=== PATIENT | male | born 1940 | race Caucasian/White ===

== ENCOUNTER 2018-04-27 10:22 | Inpatient (IN) ==
--- NOTE | 2018-04-27 10:43 | Emergency Department Note ---
Disposition Clinical Impression: Unstable angina Chest pain Qualifiers: Chest pain type: unspecified Qualified Code(s): R07.9 - Chest pain, unspecified Disposition: Admitted As Inpatient Condition: Undetermined Referrals: Kimberly Kingsley MD [Primary Care Provider] - Forms: ED Satisfaction Letter, Work/School Release Time of Disposition: 12:31 General Adult HPI - General Chief complaint: ED General Medical Stated complaint: "abnormal ekg, sent by " Time Seen by Provider: 04/27/18 10:29 Source: patient Mode of arrival: ambulatory Limitations: no limitations Nursing Notes Reviewed: Yes Vital Signs Reviewed: Yes - History of Present Illness HPI Narrative: 77-year-old male with history of hypertension, hyperlipidemia, CAD with history of CABG roughly 15 years ago, arrives to the emergency department being sent from primary care physician office for EKG changes and angina. The patient states that he has been experiencing episodes of chest pain and associated dyspnea that radiates down his left upper extremity over the past few weeks. The patient states that some episodes occur while he is laying in bed while other episodes occur while he is ambulating. The patient states that he walked from the [place] earlier today up to the emergency department and experiencing chest pain and discomfort at that time but he states that 2 days ago he experienced chest pain while he was laying in bed. The patient denies any hemoptysis, unilateral leg swelling, history DVT or PE, recent surgeries or immobilizations. Patient has no radiation of this pain other than to his left upper extremity. He states that he has associated dyspnea without any nausea or diaphoresis when pain occurs. Last episode occurred roughly 1 hour ago. He is otherwise resting comfortably in the room this time. Pain Scale: 2 - Related Data Home Medications Medication Instructions Recorded Confirmed Amlodipine Besylate 10 mg PO DAILY 04/27/18 04/27/18 Aspirin [Lo-Dose Aspirin EC] 81 mg PO DAILY 04/27/18 04/27/18 Atorvastatin [Lipitor] 10 mg PO QWEEK 04/27/18 04/27/18 Cholecalciferol (Vitamin D3) 2,000 unit PO DAILY 04/27/18 04/27/18 [Vitamin D] Cyanocobalamin (B-12) [Vitamin B12] 1,000 mcg PO DAILY 04/27/18 04/27/18 Losartan/Hydrochlorothiazide 1 tab PO DAILY 04/27/18 04/27/18 [Losartan-Hctz 100-25 mg Tab] Magnesium Oxide [Magnesium] 250 mg PO DAILY 04/27/18 04/27/18 Metoprolol Succinate [Toprol Xl] 50 mg PO DAILY 04/27/18 04/27/18 [place]-3/Dha/Epa/Fish Oil [Fish Oil 1 cap PO BID 04/27/18 04/27/18 1,000 mg Softgel] Potassium Chloride [Klor-Con 10] 10 meq PO BID 04/27/18 04/27/18 Pramipexole Di-HCl [Pramipexole 0.25 mg PO HS 04/27/18 04/27/18 Dihydrochloride] Ubidecarenone [Co Q-10] 200 mg PO DAILY 04/27/18 04/27/18 Allergies Allergy/AdvReac Type Severity Reaction Status Date / Time Amoxicillin AdvReac Diarrhea Verified 04/27/18 11:15 fenofibrate AdvReac Muscle Pain Verified 04/27/18 11:15 hydrocodone AdvReac See Verified 04/27/18 11:15 Comments Oxycodone AdvReac See Verified 04/27/18 11:15 Comments pravastatin AdvReac Muscle Pain Verified 04/27/18 11:15 Znmlsel-Ryo-Bvt Reductase AdvReac See Verified 04/27/18 11:15 Inhibitor Comments [HMG-Coa Reductase Inhibitors] All systems ED: reviewed and negative except as stated. Constitutional: Denies: fever, chills, weakness ENT ED: Denies: congestion Cardiovascular: Reports: chest pain, dyspnea on exertion. Denies: orthopnea, edema, syncope Respiratory: Reports: dyspnea. Denies: cough, wheezes Gastrointestinal: Denies: abdominal pain, nausea, vomiting, diarrhea, constipation Genitourinary: Denies: urgency, dysuria Musculoskeletal: Denies: back pain, arthralgia, myalgia Integumentary: Denies: rash Neurological: Denies: headache Past Medical History - Past Medical History Attestation: Yes The following information was validated with the patient. Source: patient, old records reviewed Medical history: Reports: coronary artery disease, hyperlipidemia, hypertension , kidney stones Surgical history: Reports: coronary bypass (CABG) Psychiatric history: Reports: no psych history - Social History Smoking Status: Never smoker Alcohol use: Reports: none Drug use: Reports: none Physical Exam - General Limitations: no limitations General appearance: alert, in no apparent distress - Head Head exam: atraumatic, normocephalic, normal inspection - Eye Eye exam: Present: normal appearance, PERRL, EOMI - ENT ENT exam: normal exam, normal oropharynx, mucous membranes moist - Neck Neck exam: Present: normal inspection, full ROM, trachea midline - Chest Chest inspection: Present: normal inspection, symmetric chest wall rise - Respiratory Respiratory exam: Present: normal lung sounds bilaterally - Cardiovascular Cardiovascular exam: Present: regular rate, normal rhythm, normal heart sounds - Abdominal Exam Abdominal exam: Present: soft, Non-Tender. Absent: tenderness, distention, guarding, rebound, rigidity - Extremities Exam Extremities exam: Present: normal inspection, full ROM. Absent: tenderness, pedal edema - Neurological Exam Neurological exam: Present: alert, oriented X3 - Skin Skin exam: Present: warm, dry, intact, normal color Course Vital Signs Temperature 97.6 F 04/27/18 10:23 Pulse Rate 62 04/27/18 10:23 Respiratory Rate 18 04/27/18 10:23 Blood Pressure 179/80 04/27/18 10:23 O2 Sat by Pulse Oximetry 92 04/27/18 10:23 Temperature 97.6 F 04/27/18 10:42 Pulse Rate 54 04/27/18 10:42 Respiratory Rate 18 04/27/18 10:42 Blood Pressure 160/75 04/27/18 10:42 O2 Sat by Pulse Oximetry 95 04/27/18 10:48 Oxygen Delivery Oxygen Delivery Room Air Medical Decision Making - [facility] Narrative Medical decision making narrative: Patient's workup in the emergency department demonstrates no acute process. The patient's troponin is not elevated at this time. The patient's chest x-ray demonstrate no acute findings. Given the patient's unstable anginal type pattern combined with his history of CABG and known CAD as well as the patient' s intermittent episodes of chest pain, we will admit the patient to the hospital at this time. The patient will likely require further workup and care. His primary care physician sent him for evaluation and likely admission with cardiology consultation. The patient is otherwise resting comfortably with no chest pain at this time. The patient was administered 325 mg aspirin. The case was discussed with the patient as well as disposition and he agreed to plan of care. No further questions or concerns noted at this time. Accepted by Dr. Guevara. - Lab Data Lab results reviewed: Yes I reviewed the patient's lab results. Result diagrams: 04/27/18 10:36 04/27/18 10:36 Lab Results 04/27/18 04/27/18 04/27/18 Range/Units 10:36 10:36 10:36 WBC 6.8 (4.3-11.1) K/mcL RBC 5.99 H (4.19-5.50) M/mcL Hgb 17.1 H (12.9-16.9) g/dL Hct 52.0 H (37.5-50.1) % MCV 86.8 (83.0-100.0) fL MCH 28.5 (28.0-33.3) pg MCHC 32.9 (31.6-35.5) g/dL RDW 14.2 (11.5-14.5) % Plt Count 233 (140-400) K/mcL MPV 9.9 (9.4-12.4) fL Immature Gran % 0.3 (0-4) % Seg Neutrophils % 54.9 % Lymphocytes % 30.5 % Monocytes % 10.2 % Eosinophils % 3.4 % Basophils % 0.7 % Neutrophils # 3.7 (1.6-8.9) K/mcL Lymphocytes # 2.1 (0.6-4.6) K/mcL Monocytes # 0.7 (0.0-1.3) K/mcL Eosinophils # 0.2 (0.0-0.6) K/mcL Basophils # 0.1 (0.0-0.2) K/mcL Immature Plt Fraction 4.2 (1.1-6.1) % PT 10.8 (9.4-12.1) Seconds INR 1.0 APTT 31.7 (26.0-36.0) Seconds Sodium 138 (136-145) mEq/L Potassium 4.2 (3.5-5.1) mEq/L Chloride 101 (98-107) mEq/L Carbon Dioxide 31 H (23-29) mEq/L BUN 22 (8-23) mg/dL Creatinine 1.04 (0.70-1.30) mg/dL Est GFR ( Amer) > 60 (> 60) Est GFR (Non-Af Amer) > 60 (> 60) BUN/Creatinine Ratio 21 (6-26) Glucose 116 H (70-105) mg/dL Calculated Osmolality 290 (280-300) Calcium 9.5 (8.6-10.3) mg/dL Troponin I < 0.03 (< 0.04) ng/mL - Radiology Data Radiology results reviewed: Yes I reviewed the patient's radiology results. Chest X-Ray 04/27/18 10:28 IMPRESSION: No acute process. D/ / 04/27/2018 11:08:52 Mark Kenyon MD / issa Interpreting Provider: Mark Kenyon MD - EKG Data EKG #1 EKG attestation: Yes I reviewed and interpreted this EKG. EKG results narrative: Heart rate 57 bpm. Sinus bradycardia. Mild ST elevation noted in leads 3, aVF. Flipped T waves in aVL and mild ST depression in lead 1. This is identical to EKG performed earlier today and primary care physician's office and similar to EKG from 06/06/2014. He was possibly mild increase in elevation in lead 3 and aVF but otherwise is similar in appearance. No other acute changes noted.
[2018-04-27 10:53] LABS: Basophils # 0.1 K/mcL (0.0-0.2); Basophils % 0.7 %; Eosinophils # 0.2 K/mcL (0.0-0.6); Eosinophils % 3.4 %; Hemoglobin 17.1 g/dL (12.9-16.9); Immature Granulocytes % 0.3 % (0-4); Lymphocytes # 2.1 K/mcL (0.6-4.6); Lymphocytes % 30.5 %; Mean Corpuscular HGB Conc 32.9 g/dL (31.6-35.5); Mean Corpuscular Hemoglobin 28.5 pg (28.0-33.3); Mean Corpuscular Volume 86.8 fL (83.0-100.0); Mean Platelet Volume 9.9 fL (9.4-12.4); Monocytes # 0.7 K/mcL (0.0-1.3); Monocytes % 10.2 %; Neutrophils # 3.7 K/mcL (1.6-8.9); Platelet Count 233 K/mcL (140-400); Red Blood Count 5.99 M/mcL (4.19-5.50); Red Cell Distribution Width 14.2 % (11.5-14.5); Segmented Neutrophils % 54.9 %
[2018-04-27 10:56] LABS: Immature Platelets 4.2 % (1.1-6.1)
[2018-04-27 11:05] LABS: Prothrombin Time 10.8 Seconds (9.4-12.1)
[2018-04-27 11:07] LABS: BUN/Creatinine Ratio 21 (6-26); Blood Urea Nitrogen 22 mg/dL (8-23); Calcium 9.5 mg/dL (8.6-10.3); Carbon Dioxide 31 mEq/L (23-29); Chloride 101 mEq/L (98-107); Glucose 116 mg/dL (70-105); Osmolality,Calculated 290 (280-300); Potassium 4.2 mEq/L (3.5-5.1); Sodium 138 mEq/L (136-145); eGFR For African Americans > 60 (> 60); eGFR For Non-African Americans > 60 (> 60)
[2018-04-27 11:08] LABS: Activated Partial Thrombo Time 31.7 Seconds (26.0-36.0); Troponin I < 0.03 ng/mL (< 0.04)
[2018-04-27] MEDS ORDERED: Aspirin 325 MG TABLET PO ONE (11:12)
[2018-04-27] MEDS ORDERED: Naloxone 0.4 MG/ML INJ IVP PRN (12:51)
[2018-04-27] MEDS ORDERED: Acetaminophen 325 MG TABLET PO PRN (12:51)
[2018-04-27] MEDS ORDERED: Ondansetron 4 MG/2 ML VIAL IVP PRN (12:51)
[2018-04-27] MEDS ORDERED: Nitroglycerin 0.4 MG TAB.SUBL SL PRN (12:55)
--- NOTE | 2018-04-27 13:35 | Emergency Department Note ---
Disposition Clinical Impression: Unstable angina Chest pain Qualifiers: Chest pain type: unspecified Qualified Code(s): R07.9 - Chest pain, unspecified Disposition: Admitted As Inpatient Condition: Undetermined General Adult HPI - General Chief complaint: ED Recheck/Abnormal Lab/Rx Stated complaint: "abnormal ekg, sent by " Time Seen by Provider: 04/27/18 10:29 Source: patient Mode of arrival: ambulatory Limitations: no limitations - History of Present Illness Pain Scale: 2 - Related Data Home Medications Medication Instructions Recorded Confirmed Amlodipine Besylate 10 mg PO DAILY 04/27/18 04/27/18 Aspirin [Lo-Dose Aspirin EC] 81 mg PO DAILY 04/27/18 04/27/18 Atorvastatin [Lipitor] 10 mg PO QWEEK 04/27/18 04/27/18 Cholecalciferol (Vitamin D3) 2,000 unit PO DAILY 04/27/18 04/27/18 [Vitamin D] Cyanocobalamin (B-12) [Vitamin B12] 1,000 mcg PO DAILY 04/27/18 04/27/18 Losartan/Hydrochlorothiazide 1 tab PO DAILY 04/27/18 04/27/18 [Losartan-Hctz 100-25 mg Tab] Magnesium Oxide [Magnesium] 250 mg PO DAILY 04/27/18 04/27/18 Metoprolol Succinate [Toprol Xl] 50 mg PO DAILY 04/27/18 04/27/18 [place]-3/Dha/Epa/Fish Oil [Fish Oil 1 cap PO BID 04/27/18 04/27/18 1,000 mg Softgel] Potassium Chloride [Klor-Con 10] 10 meq PO BID 04/27/18 04/27/18 Pramipexole Di-HCl [Pramipexole 0.25 mg PO HS 04/27/18 04/27/18 Dihydrochloride] Ubidecarenone [Co Q-10] 200 mg PO DAILY 04/27/18 04/27/18 Allergies Allergy/AdvReac Type Severity Reaction Status Date / Time Amoxicillin AdvReac Diarrhea Verified 04/27/18 11:15 fenofibrate AdvReac Muscle Pain Verified 04/27/18 11:15 hydrocodone AdvReac See Verified 04/27/18 11:15 Comments Oxycodone AdvReac See Verified 04/27/18 11:15 Comments pravastatin AdvReac Muscle Pain Verified 04/27/18 11:15 Qdbatvq-Rda-Dek Reductase AdvReac See Verified 04/27/18 11:15 Inhibitor Comments [HMG-Coa Reductase Inhibitors] Constitutional: Denies: fever, chills, weakness ENT ED: Denies: congestion Cardiovascular: Reports: chest pain, dyspnea on exertion. Denies: orthopnea, edema, syncope Respiratory: Reports: dyspnea. Denies: cough, wheezes Gastrointestinal: Denies: abdominal pain, nausea, vomiting, diarrhea, constipation Genitourinary: Denies: urgency, dysuria Musculoskeletal: Denies: back pain, arthralgia, myalgia Integumentary: Denies: rash Neurological: Denies: headache Past Medical History - Past Medical History Medical history: Reports: coronary artery disease, hyperlipidemia, hypertension , kidney stones Surgical history: Reports: coronary bypass (CABG) Psychiatric history: Reports: no psych history - Social History Smoking Status: Never smoker Smokeless Tobacco Status: No Alcohol use: Reports: none Drug use: Reports: none Physical Exam - General Limitations: no limitations General appearance: alert, in no apparent distress Course Vital Signs Temperature 97.6 F 04/27/18 10:23 Pulse Rate 62 04/27/18 10:23 Respiratory Rate 18 04/27/18 10:23 Blood Pressure 179/80 04/27/18 10:23 O2 Sat by Pulse Oximetry 92 04/27/18 10:23 Temperature 97.5 F L 04/27/18 13:27 Pulse Rate 49 04/27/18 13:27 Respiratory Rate 17 04/27/18 13:27 Blood Pressure 147/76 04/27/18 13:27 O2 Sat by Pulse Oximetry 94 04/27/18 13:27 Oxygen Delivery Oxygen Delivery Room Air Medical Decision Making - Lab Data Result diagrams: 04/27/18 10:36 04/27/18 10:36 Lab Results 04/27/18 04/27/18 04/27/18 Range/Units 10:36 10:36 10:36 WBC 6.8 (4.3-11.1) K/mcL RBC 5.99 H (4.19-5.50) M/mcL Hgb 17.1 H (12.9-16.9) g/dL Hct 52.0 H (37.5-50.1) % MCV 86.8 (83.0-100.0) fL MCH 28.5 (28.0-33.3) pg MCHC 32.9 (31.6-35.5) g/dL RDW 14.2 (11.5-14.5) % Plt Count 233 (140-400) K/mcL MPV 9.9 (9.4-12.4) fL Immature Gran % 0.3 (0-4) % Seg Neutrophils % 54.9 % Lymphocytes % 30.5 % Monocytes % 10.2 % Eosinophils % 3.4 % Basophils % 0.7 % Neutrophils # 3.7 (1.6-8.9) K/mcL Lymphocytes # 2.1 (0.6-4.6) K/mcL Monocytes # 0.7 (0.0-1.3) K/mcL Eosinophils # 0.2 (0.0-0.6) K/mcL Basophils # 0.1 (0.0-0.2) K/mcL Immature Plt Fraction 4.2 (1.1-6.1) % PT 10.8 (9.4-12.1) Seconds INR 1.0 APTT 31.7 (26.0-36.0) Seconds Sodium 138 (136-145) mEq/L Potassium 4.2 (3.5-5.1) mEq/L Chloride 101 (98-107) mEq/L Carbon Dioxide 31 H (23-29) mEq/L BUN 22 (8-23) mg/dL Creatinine 1.04 (0.70-1.30) mg/dL Est GFR ( Amer) > 60 (> 60) Est GFR (Non-Af Amer) > 60 (> 60) BUN/Creatinine Ratio 21 (6-26) Glucose 116 H (70-105) mg/dL Calculated Osmolality 290 (280-300) Calcium 9.5 (8.6-10.3) mg/dL Troponin I < 0.03 (< 0.04) ng/mL Attestation Statement - Attestation Attestation: I examined this patient and my medical decision-making was reviewed with the INDUSTRIAL RELATIONS REPRESENTATIVE/PA/Advanced Practice Nurse/Resident Physician. I agree with the documented findings, disposition and treatment plan as described except to the extent set forth below. Patient does complain of exertional chest pain with symptoms concerning for acute coronary syndrome. Initial labs are negative. The patient does have a history of CABG. Chest x-ray negative. The troponin is negative. The patient will be admitted for further inpatient evaluation. He is laying comfortably on the cart, conversational, skin is pink and dry. No distress at this time [id number]
--- NOTE | 2018-04-27 16:32 | Internal Med History&Physical ---
Date of Encounter: 04/27/18 Time of Encounter: 16:28 Internal Medicine - H&P: HPI Chief complaint: Chest pain Admitted From: Emergency Dept Plans for Post Hospital Care: Home History of present illness: Mr. Berry is a 77 year old male with known hypertension, hyperlipidemia, and CAD with s/p PCI, history of CABG roughly 15 years ago, arrives to the emergency department being sent from primary care physician office for EKG changes and angina chest pain. He did mention from [place] one week he has been having intermittent CP, located left chest and sub sternal region, radiating to his Left arm. His pain 6/10 in severity. He did g to his PCP who is worried about pt 's angina equivalent cp and non specific ekg changes. So PCP sent the pt to our ER for further care. Also pt tried to reach out this Card with this CP , however they do not have any openings till November. Pt is alert, awake and O x 3. Denied any active CP now. Past Med Surg Social Fam HX - Past Medical History Medical history: coronary artery disease, hyperlipidemia, hypertension, kidney stones Psychiatric history: no psych history - Past Surgical History Surgical History: coronary bypass (CABG) Additional surgical history: Lithotripsy - Social History Smoking Status: Never smoker Smokeless Tobacco Status: No Alcohol use: none Drug use: none - Additional Family History Additional family history: Reviewed FH, non contribuitory to current problems. Internal Medicine - H&P: Meds Amlodipine Besylate 10 mg PO DAILY 04/27/18 [History] Aspirin [Lo-Dose Aspirin EC] 81 mg PO DAILY 04/27/18 [History] Atorvastatin [Lipitor] 10 mg PO QWEEK 04/27/18 [History] Cholecalciferol (Vitamin D3) [Vitamin D] 2,000 unit PO DAILY 04/27/18 [History] Cyanocobalamin (B-12) [Vitamin B12] 1,000 mcg PO DAILY 04/27/18 [History] Losartan/Hydrochlorothiazide [Losartan-Hctz 100-25 mg Tab] 1 tab PO DAILY [History] Magnesium Oxide [Magnesium] 250 mg PO DAILY 04/27/18 [History] Metoprolol Succinate [Toprol Xl] 50 mg PO DAILY 04/27/18 [History] [place]-3/Dha/Epa/Fish Oil [Fish Oil 1,000 mg Softgel] 1 cap PO BID 04/27/18 [ History] Potassium Chloride [Klor-Con 10] 10 meq PO BID 04/27/18 [History] Pramipexole Di-HCl [Pramipexole Dihydrochloride] 0.25 mg PO HS 04/27/18 [History ] Ubidecarenone [Co Q-10] 200 mg PO DAILY 04/27/18 [History] 3 Allergy/AdvReac Type Severity Reaction Status Date / Time Amoxicillin AdvReac Diarrhea Verified 04/27/18 11:15 fenofibrate AdvReac Muscle Pain Verified 04/27/18 11:15 hydrocodone AdvReac See Verified 04/27/18 11:15 Comments Oxycodone AdvReac See Verified 04/27/18 11:15 Comments pravastatin AdvReac Muscle Pain Verified 04/27/18 11:15 Vtmezos-Iqc-Lvf Reductase AdvReac See Verified 04/27/18 11:15 Inhibitor Comments [HMG-Coa Reductase Inhibitors] All Systems PM: A 10-system review of systems was performed and is negative for pertinent findings except as documented above in the HPI. Review of systems: Reviewed all the systems everything is benign except the signs an symptoms I mentioned in HPI. - Constitutional Vitals: Temp Pulse Resp BP Pulse Ox 97.6 F 48 16 134/64 91 04/27/18 15:14 04/27/18 15:14 04/27/18 15:14 04/27/18 15:14 04/27/18 15:14 General appearance: Present: A&O X 3, no acute distress, answers questions appropriately - Head Head exam: Present: atraumatic, normal inspection - Respiratory Respiratory exam: Present: decreased breath sounds. Absent: accessory muscle use, rales, rhonchi, wheezes - Cardiovascular Cardiovascular exam: Present: bradycardia, +S1, +S2. Absent: systolic murmur - GI/Abdominal GI/Abdominal exam: Present: normal bowel sounds, soft. Absent: rigid, tenderness - Extremities Exam Extremities exam: Absent: calf tenderness, pedal edema, tenderness - Back Exam Back exam: Absent: CVA tenderness (L), CVA tenderness (R) - Neurological Exam Neurological exam: Present: alert, oriented X3 - Psychiatric Psychiatric exam: Present: normal affect, normal mood - Skin Skin exam: Absent: rash Internal Med - H&P Results - Labs CBC & Chem 7: 04/27/18 10:36 04/27/18 10:36 - Assessment and plan (1) Chest pain Current Visit: Yes Status: Acute Assessment and plan: Place the pt into tele for observation on cage loader so far negative trop check serial troponin Reviewed EKG showed Sinus claire HR @ 57, Non specific ST T changes noticed on lateral leads Cont ASA 81mg and ARBS Nitor PRN for CP Since pt is high risk for ACS will do pharmacological stress test in AM Qualifiers: Chest pain type: unspecified Qualified Code(s): R07.9 - Chest pain, unspecified (2) CAD (coronary artery disease) Current Visit: Yes Status: Acute Assessment and plan: resumed home meds except BB due to bradycardia Qualifiers: Coronary Disease-Associated Artery/Lesion type: bypass graft [place] vs. transplanted heart: [place] heart Associated angina: with stable angina Qualified Code(s): I25.708 - Atherosclerosis of coronary artery bypass graft(s) , unspecified, with other forms of angina pectoris (3) HTN (hypertension) Current Visit: Yes Status: Acute Assessment and plan: stable with home medications resumed home medications Qualifiers: Hypertension type: essential hypertension Qualified Code(s): I10 - Essential (primary) hypertension (4) HLD (hyperlipidemia) Current Visit: Yes Status: Acute Assessment and plan: on statin check FLP in AM Qualifiers: Hyperlipidemia type: unspecified Qualified Code(s): E78.5 - Hyperlipidemia , unspecified (5) Bradycardia Current Visit: Yes Status: Acute Assessment and plan: Will hold on BB for now asymptomatic at this point - Time Spent With Patient Total time spent is greater than 50% in coordination of care (as documented) at patient's floor/unit and/or counseling patient:
[2018-04-27] MEDS: (Omega-3/Dha/Epa/Fish Oil [Fish Oil 1,000 Mg Softgel]) PO SCH (20:56)
[2018-04-28 06:43] LABS: Chol/HDL Ratio 3.6 (0-4.9)
[2018-04-28] MEDS ORDERED: Regadenoson 0.4 MG/5 ML SYRINGE IVP ONE (08:04)
[2018-04-28] MEDS ORDERED: Metoprolol XL (24 HR) Succ 50 MG TAB.ER.24H PO SCH (09:00)
[2018-04-28] MEDS: (Ubidecarenone [Co Q-10] 200 MG) PO SCH (14:32)
[2018-04-28] MEDS: (Omega-3/Dha/Epa/Fish Oil [Fish Oil 1,000 Mg Softgel]) PO SCH ×2 (14:32→20:17)
[2018-04-28] MEDS: Aspirin Enteric Coated 81 MG Tablet PO SCH (14:38)
[2018-04-28] MEDS: amLODIPine 5 MG TABLET PO SCH (14:38)
[2018-04-28] MEDS: Losartan/HCTZ 50-12.5 TABLET PO SCH (14:38)
[2018-04-28] MEDS: Cholecalciferol (D-3) 1,000 UNIT TABLET PO SCH (14:38)
[2018-04-28] MEDS: Cyanocobalamin (B-12) 1,000 MCG TABLET PO SCH (14:39)
[2018-04-28] MEDS: Magnesium Oxide 400 MG TABLET PO SCH (14:39)
--- NOTE | 2018-04-28 16:30 | Internal Med Progress Note ---
<Warren Altman - Last Filed: 04/28/18 16:27> Date of Encounter: 04/28/18 Time of Encounter: 16:27 - Assessment and plan (1) Chest pain Current Visit: Yes Status: Acute Assessment and plan: Chest pain-free at this time. Plan as above. Continue aspirin, weekly statin due to allergy. Hold beta pj due to bradycardia Qualifiers: Chest pain type: unspecified Qualified Code(s): R07.9 - Chest pain, unspecified (2) CAD (coronary artery disease) Current Visit: Yes Status: Acute Assessment and plan: resumed home meds except beta pj due to bradycardia. Await cardiology recommendations Qualifiers: Coronary Disease-Associated Artery/Lesion type: bypass graft [place] vs. transplanted heart: [place] heart Associated angina: with stable angina Qualified Code(s): I25.708 - Atherosclerosis of coronary artery bypass graft(s) , unspecified, with other forms of angina pectoris (3) HTN (hypertension) Current Visit: Yes Status: Acute Assessment and plan: Mildly elevated Continue home medications, continue to monitor Qualifiers: Hypertension type: essential hypertension Qualified Code(s): I10 - Essential (primary) hypertension (4) HLD (hyperlipidemia) Current Visit: Yes Status: Acute Assessment and plan: Continue statin, patient takes weekly due to is listed statin allergy Qualifiers: Hyperlipidemia type: unspecified Qualified Code(s): E78.5 - Hyperlipidemia , unspecified (5) Bradycardia Current Visit: Yes Status: Acute Assessment and plan: Will hold on BB for now asymptomatic at this point (6) Abnormal stress test Current Visit: Yes Status: Acute Assessment and plan: Stress test showed partially fixed basal lateral wall perfusion defect with worsening during stress possibly representing mild ischemia, no perfusion evidence of infarct. Given the patient's typical chest pain and significant cardiac history we will consult cardiology and await their official recommendations. Patient is chest pain-free at this time. - Time Spent With Patient Total time spent is greater than 50% in coordination of care (as documented) at patient's floor/unit and/or counseling patient: - Subjective Interval history: Patient seen and examined at bedside. Patient states he feels pretty good today. He denies chest pain, shortness of breath. - Constitutional Vitals: Temp Pulse Resp BP Pulse Ox 98.2 F 62 14 168/77 91 04/28/18 15:24 04/28/18 15:24 04/28/18 15:24 04/28/18 15:24 04/28/18 15:24 General appearance: Present: A&O X 3, no acute distress, answers questions appropriately - Respiratory Respiratory exam: Present: CTAB. Absent: rales, rhonchi, wheezes - Cardiovascular Cardiovascular exam: Present: RRR. Absent: gallop, rubs, systolic murmur - GI/Abdominal GI/Abdominal exam: Present: normal bowel sounds, soft. Absent: distended, tenderness - Extremities Exam Extremities exam: Present: warm. Absent: pedal edema, tenderness - Neurological Exam Neurological exam: Present: alert, CN II-XII intact, oriented X3, no focal deficits Internal Medicine: Result - Labs CBC & Chem 7: 04/27/18 10:36 04/27/18 10:36 Labs: Cardiac Enzymes 04/27/18 04/27/18 Range/Units 16:22 22:53 Troponin I < 0.03 < 0.03 (< 0.04) ng/mL - ABG Interpretation ABG results: PT/INR, D-dimer PT 10.8 Seconds (9.4-12.1) 04/27/18 10:36 Consult Discharge Plan - Plan Referrals: Kimberly Kingsley MD [Primary Care Provider] - <Drea Martinez - Last Filed: 04/28/18 17:19> Date of Encounter: 04/28/18 - Assessment and plan (1) Chest pain Current Visit: Yes Status: Acute Qualifiers: Chest pain type: unspecified Qualified Code(s): R07.9 - Chest pain, unspecified (2) CAD (coronary artery disease) Current Visit: Yes Status: Acute Qualifiers: Coronary Disease-Associated Artery/Lesion type: bypass graft [place] vs. transplanted heart: [place] heart Associated angina: with stable angina Qualified Code(s): I25.708 - Atherosclerosis of coronary artery bypass graft(s) , unspecified, with other forms of angina pectoris (3) HTN (hypertension) Current Visit: Yes Status: Acute Qualifiers: Hypertension type: essential hypertension Qualified Code(s): I10 - Essential (primary) hypertension (4) HLD (hyperlipidemia) Current Visit: Yes Status: Acute Qualifiers: Hyperlipidemia type: unspecified Qualified Code(s): E78.5 - Hyperlipidemia , unspecified (5) Bradycardia Current Visit: Yes Status: Acute (6) Abnormal stress test Current Visit: Yes Status: Acute - Time Spent With Patient Total time spent is greater than 50% in coordination of care (as documented) at patient's floor/unit and/or counseling patient: - Constitutional Vitals: Temp Pulse Resp BP Pulse Ox 98.2 F 62 14 168/77 91 04/28/18 15:24 04/28/18 15:24 04/28/18 15:24 04/28/18 15:24 04/28/18 15:24 Internal Medicine: Result - Labs CBC & Chem 7: 04/27/18 10:36 04/27/18 10:36 Labs: Cardiac Enzymes 04/27/18 04/27/18 Range/Units 16:22 22:53 Troponin I < 0.03 < 0.03 (< 0.04) ng/mL - ABG Interpretation ABG results: PT/INR, D-dimer PT 10.8 Seconds (9.4-12.1) 04/27/18 10:36 - Attending Attestation I examined this patient and my medical decision-making was reviewed with the Resident Physician Dr. Altman. I agree with the documented findings, disposition and treatment plan as described except to the extent set forth below. Mr. Berry is a 77 year old male with known hypertension, hyperlipidemia, and CAD with s/p PCI, history of CABG roughly 15 years ago, arrives to the emergency department being sent from primary care physician office for EKG changes and angina chest pain. He did mention from last one week he has been having intermittent CP, located left chest and sub sternal region, radiating to his Left arm. He just came back from stress test. Denied any CP since last night. Gen: A,A,O x 3 Chest : Diminished BS Heart : S1S2+ a/p 1. Acute stable angina 2. Abnormal stress test cont on tele negative troponin Card consulted held BB [place] bradycardia.
--- NOTE | 2018-04-28 20:36 | Cardiology Consult Note ---
Date of Encounter: 04/28/18 Time of Encounter: 20:33 Assessment and Plan (1) Unstable angina Current Visit: Yes Status: Acute Typical slightly progressive angina with exertion now occurs with rest. [facility] d/w patient including R/B/A and he agrees to proceed. Heparin IV will be started, and resume ASA and plavix Discussion w patient/family: The assessment and plan as outlined above was discussed with the patient and/or family members who expressed understanding and agreement. All questions were answered. Thank you for involving us in the care of your patient. Please call with any questions. History of Present Illness Consult date: 04/28/18 Consult reason: Chest pain Chief complaint: Chest pain with activity History of present illness: Mr. Berry is a 77 year old male with known hypertension, hyperlipidemia, and CAD with s/p PCI/CABG complains of exertional angina over last few weeks. This has been typical with RSCP relieved with rest. NST with fixed defect and mild ischemia with stress over basal lateral wall. Pain radiates to the back similiar when he had his stents few weeks prior to CABG. Past Med Surg Social Fam HX - Past Medical History Medical history: coronary artery disease, hyperlipidemia, hypertension, kidney stones Psychiatric history: no psych history - Past Surgical History Surgical History: coronary bypass (CABG) Additional surgical history: Lithotripsy - Social History Smoking Status: Never smoker Smokeless Tobacco Status: No Alcohol use: none Drug use: none Medications and Allergies Amlodipine Besylate 10 mg PO DAILY 04/27/18 [History] Aspirin [Lo-Dose Aspirin EC] 81 mg PO DAILY 04/27/18 [History] Atorvastatin [Lipitor] 10 mg PO QWEEK 04/27/18 [History] Cholecalciferol (Vitamin D3) [Vitamin D] 2,000 unit PO DAILY 04/27/18 [History] Cyanocobalamin (B-12) [Vitamin B12] 1,000 mcg PO DAILY 04/27/18 [History] Losartan/Hydrochlorothiazide [Losartan-Hctz 100-25 mg Tab] 1 tab PO DAILY [History] Magnesium Oxide [Magnesium] 250 mg PO DAILY 04/27/18 [History] Metoprolol Succinate [Toprol Xl] 50 mg PO DAILY 04/27/18 [History] [place]-3/Dha/Epa/Fish Oil [Fish Oil 1,000 mg Softgel] 1 cap PO BID 04/27/18 [ History] Potassium Chloride [Klor-Con 10] 10 meq PO BID 04/27/18 [History] Pramipexole Di-HCl [Pramipexole Dihydrochloride] 0.25 mg PO HS 04/27/18 [History ] Ubidecarenone [Co Q-10] 200 mg PO DAILY 04/27/18 [History] 3 Allergy/AdvReac Type Severity Reaction Status Date / Time Amoxicillin AdvReac Diarrhea Verified 04/27/18 11:15 fenofibrate AdvReac Muscle Pain Verified 04/27/18 11:15 hydrocodone AdvReac See Verified 04/27/18 11:15 Comments Oxycodone AdvReac See Verified 04/27/18 11:15 Comments pravastatin AdvReac Muscle Pain Verified 04/27/18 11:15 [id number] Reductase AdvReac See Verified 04/27/18 11:15 Inhibitor Comments [HMG-Coa Reductase Inhibitors] All Systems Review: The remainder of the systems were reviewed and are negative Physical Examination Vital Signs, Last 4 Hours Temp Pulse Resp BP Pulse Ox 04/28/18 20:01 98.4 F 50 16 101/49 97 04/28/18 19:29 98.2 F 59 16 136/68 92 General: Conversant, No Apparent Distress HEENT: Atraumatic, Normocephaly, Mucus Membranes Moist Neck: No JVD, Normal carotid pulses Cardiac: Reg Rate and Rhythm, Normal S1 and S2, No Murmur Lungs: Normal Breath Sounds, No Wheeze, Rales, Rhonchi Neuro: Alert and responsive, No focal deficits noted Abdomen: Soft, Non-Tender Skin: No rashes noted on visualized skin Musculoskeletal: No Chest Wall Tenderness Extremities: No Clubbing, No Cyanosis, No Edema, Normal Pulses Results 04/27/18 10:36 04/27/18 10:36 Lab Results 04/27/18 22:53 Troponin I < 0.03 Consult Discharge Plan - Plan Referrals: Kimberly Kingsley MD [Primary Care Provider] -
[2018-04-29] MEDS ORDERED: *HR* Heparin 5,000 UNIT/ML VIAL IVP PRN ×2 (07:18)
[2018-04-29] MEDS ORDERED: *HR* Heparin 5,000 UNIT/ML VIAL IVP ONE (07:18)
[2018-04-29] MEDS ORDERED: Heparin 25,000 UNIT/500 ML D5W 25,000 UNIT/500 ML BAG IVC SCH (07:30)
--- NOTE | 2018-04-29 07:32 | Internal Med Progress Note ---
<LisetteWarren brown - Last Filed: 04/29/18 07:30> Date of Encounter: 04/29/18 Time of Encounter: 07:30 - Assessment and plan (1) Unstable angina Current Visit: Yes Status: Acute Assessment and plan: Stress test showed partially fixed basal lateral wall perfusion defect with worsening during stress possibly representing mild ischemia, no perfusion evidence of infarct. Given the patient's typical chest pain and significant cardiac history cardiology has recommended LHC. Heparin drip initiated. Had chest pain last night, EKG reviewed, no changes and troponin negative. Continue ASA, plavix, weekly statin given allergy. Beta pj held at this time due to bradycardia. (2) CAD (coronary artery disease) Current Visit: Yes Status: Acute Assessment and plan: with hx of PCI and CABG, plan as above Qualifiers: Coronary Disease-Associated Artery/Lesion type: bypass graft [place] vs. transplanted heart: [place] heart Associated angina: with stable angina Qualified Code(s): I25.708 - Atherosclerosis of coronary artery bypass graft(s) , unspecified, with other forms of angina pectoris (3) HTN (hypertension) Current Visit: Yes Status: Acute Assessment and plan: Mildly elevated but having some fluctuations Continue home medications, continue to monitor Qualifiers: Hypertension type: essential hypertension Qualified Code(s): I10 - Essential (primary) hypertension (4) HLD (hyperlipidemia) Current Visit: Yes Status: Acute Assessment and plan: Continue statin, patient takes weekly due to is listed statin allergy Qualifiers: Hyperlipidemia type: unspecified Qualified Code(s): E78.5 - Hyperlipidemia , unspecified (5) Bradycardia Current Visit: Yes Status: Acute Assessment and plan: Will hold on BB for now asymptomatic at this point - Time Spent With Patient Total time spent is greater than 50% in coordination of care (as documented) at patient's floor/unit and/or counseling patient: - Subjective Interval history: Patient seen and examined at bedside. Patient states he feels pretty good at this time. He reports that at approximately 5am he was woken up from a sleep with chest pain similar to his previous episodes. He reports this lasted 8-10 minutes and resolved spontaneously. He did not take nitro for this. He denies shortness of breath, diaphoresis, nausea, vomiting - Constitutional Vitals: Temp Pulse Resp BP Pulse Ox 98.4 F 56 16 156/72 94 04/28/18 20:01 04/29/18 05:30 04/29/18 05:30 04/29/18 05:30 04/29/18 05:30 General appearance: Present: A&O X 3, no acute distress, answers questions appropriately - Respiratory Respiratory exam: Present: CTAB. Absent: rales, rhonchi, wheezes - Cardiovascular Cardiovascular exam: Present: RRR. Absent: gallop, rubs, systolic murmur - GI/Abdominal GI/Abdominal exam: Present: normal bowel sounds, soft. Absent: distended, tenderness - Extremities Exam Extremities exam: Present: warm. Absent: pedal edema, tenderness - Neurological Exam Neurological exam: Present: alert, CN II-XII intact, oriented X3, no focal deficits Internal Medicine: Result - Labs CBC & Chem 7: 04/27/18 10:36 04/27/18 10:36 Labs: Cardiac Enzymes 04/29/18 Range/Units 05:52 Troponin I < 0.03 (< 0.04) ng/mL - ABG Interpretation ABG results: PT/INR, D-dimer PT 10.8 Seconds (9.4-12.1) 04/27/18 10:36 Consult Discharge Plan - Plan Referrals: Kimberly Kingsley MD [Primary Care Provider] - <Drea Martinez - Last Filed: 04/29/18 14:02> Date of Encounter: 04/29/18 - Assessment and plan (1) Unstable angina Current Visit: Yes Status: Acute (2) CAD (coronary artery disease) Current Visit: Yes Status: Acute Qualifiers: Coronary Disease-Associated Artery/Lesion type: bypass graft [place] vs. transplanted heart: [place] heart Associated angina: with stable angina Qualified Code(s): I25.708 - Atherosclerosis of coronary artery bypass graft(s) , unspecified, with other forms of angina pectoris (3) HTN (hypertension) Current Visit: Yes Status: Acute Qualifiers: Hypertension type: essential hypertension Qualified Code(s): I10 - Essential (primary) hypertension (4) HLD (hyperlipidemia) Current Visit: Yes Status: Acute Qualifiers: Hyperlipidemia type: unspecified Qualified Code(s): E78.5 - Hyperlipidemia , unspecified (5) Bradycardia Current Visit: Yes Status: Acute - Time Spent With Patient Total time spent is greater than 50% in coordination of care (as documented) at patient's floor/unit and/or counseling patient: - Constitutional Vitals: Temp Pulse Resp BP Pulse Ox 97.8 F 57 17 126/62 92 04/29/18 11:39 04/29/18 11:39 04/29/18 11:39 04/29/18 11:39 04/29/18 11:39 Internal Medicine: Result - Labs CBC & Chem 7: 04/29/18 08:46 04/29/18 11:02 Labs: Short CBC 04/29/18 Range/Units 08:46 WBC 7.5 (4.3-11.1) K/mcL Hgb 17.3 H (12.9-16.9) g/dL Hct 52.2 H (37.5-50.1) % Plt Count 228 (140-400) K/mcL BMP 04/29/18 11:02 Sodium 138 Potassium 3.9 Chloride 100 Carbon Dioxide 33 H BUN 21 Creatinine 1.02 Glucose 111 H Calcium 9.4 Cardiac Enzymes 04/29/18 Range/Units 05:52 Troponin I < 0.03 (< 0.04) ng/mL - ABG Interpretation ABG results: PT/INR, D-dimer PT 11.7 Seconds (9.4-12.1) 04/29/18 08:46 - Attending Attestation I examined this patient and my medical decision-making was reviewed with the Resident Physician Dr. Altman. I agree with the documented findings, disposition and treatment plan as described except to the extent set forth below. Mr. Berry is a 77 year old male with known hypertension, hyperlipidemia, and CAD with s/p PCI, history of CABG roughly 15 years ago, arrives to the emergency department being sent from primary care physician office for EKG changes and angina chest pain. He did mention from last one week he has been having intermittent CP, located left chest and sub sternal region, radiating to his Left arm. 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 denied any CP now. Gen: A,A,O x 3 Chest : Diminished BS Heart : S1S2+ a/p 1. Acute unstable angina 2. Abnormal stress test cont on tele negative troponin Card scheduled for [facility] today cont Heparin gtt for now held BB due to bradycardia.
[2018-04-29] MEDS: Cholecalciferol (D-3) 1,000 UNIT TABLET PO SCH (08:52)
[2018-04-29] MEDS: Magnesium Oxide 400 MG TABLET PO SCH (08:52)
[2018-04-29] MEDS: Aspirin Enteric Coated 81 MG Tablet PO SCH (08:52)
[2018-04-29] MEDS: Losartan/HCTZ 50-12.5 TABLET PO SCH (08:52)
[2018-04-29] MEDS: Cyanocobalamin (B-12) 1,000 MCG TABLET PO SCH (08:52)
[2018-04-29] MEDS: amLODIPine 5 MG TABLET PO SCH (08:52)
[2018-04-29] MEDS: (Omega-3/Dha/Epa/Fish Oil [Fish Oil 1,000 Mg Softgel]) PO SCH ×2 (08:53→19:57)
[2018-04-29] MEDS: (Ubidecarenone [Co Q-10] 200 MG) PO SCH (08:53)
[2018-04-29 09:26] LABS: Hematocrit 52.2 % (37.5-50.1); Hemoglobin 17.3 g/dL (12.9-16.9); Mean Corpuscular HGB Conc 33.1 g/dL (31.6-35.5); Mean Corpuscular Hemoglobin 28.7 pg (28.0-33.3); Mean Corpuscular Volume 86.7 fL (83.0-100.0); Platelet Count 228 K/mcL (140-400); Red Blood Count 6.02 M/mcL (4.19-5.50); Red Cell Distribution Width 14.1 % (11.5-14.5)
[2018-04-29 09:33] LABS: INR 1.1; Prothrombin Time 11.7 Seconds (9.4-12.1)
[2018-04-29 09:36] LABS: Activated Partial Thrombo Time 34.3 Seconds (26.0-36.0)
--- NOTE | 2018-04-29 10:48 | Event Note ---
Date of Encounter: 04/29/18 Time of Encounter: 10:47 - Cardiology Event Note Pt had episode of chest pain this AM ~0520, lasted 7-8 minutes and spontaneously resolved. Check CBC and BMP. Given chest pain, plan for LHC later today per Dr. Goyal. Continue heparin gtt. R/B/A discussed. Pt agrees to LHC.
[2018-04-29 12:04] LABS: BUN/Creatinine Ratio 21 (6-26); Blood Urea Nitrogen 21 mg/dL (8-23); Calcium 9.4 mg/dL (8.6-10.3); Carbon Dioxide 33 mEq/L (23-29); Chloride 100 mEq/L (98-107); Glucose 111 mg/dL (70-105); Osmolality,Calculated 290 (280-300); Potassium 3.9 mEq/L (3.5-5.1); Sodium 138 mEq/L (136-145); eGFR For African Americans > 60 (> 60); eGFR For Non-African Americans > 60 (> 60)
[2018-04-29] MEDS ORDERED: Heparin 1,000 UNITS/500 mL 500 ML ONE (14:29)
[2018-04-29] MEDS ORDERED: 0.9 % Sodium Chloride 1,000 ML ONE ×2 (14:29→15:07)
[2018-04-29] MEDS ORDERED: ISOVUE-370 200 ML INFUS..BTL IV ONE (14:30)
[2018-04-29] MEDS ORDERED: *HR* Heparin 10,000 UNIT/10 ML VIAL ONE (14:30)
[2018-04-29] MEDS ORDERED: Nitroglycerin 1,000 MCG/10 ML VIAL IV ONE (14:36)
--- NOTE | 2018-04-29 14:51 | Pre-Sedation Evaluation ---
Pre-sedation evaluation - Pre-sedation checklist Date of procedure: 04/29/18 Procedure: Heart Catherization Recent Vitals: Last Vital Signs Temp 97.8 F 04/29/18 11:39 Pulse 57 04/29/18 11:39 Resp 17 04/29/18 11:39 BP 126/62 04/29/18 11:39 Pulse Ox 92 04/29/18 11:39 H&P (including ROS) documented in medical record: Yes Previous reaction to sedatives/anesthetics: No Dietary Status: No solid food in preceding 4 hrs and no liquid in preceding 2 hrs Dentition: full dentition ASA Classification *see protocol: CLASS II-Mild systemic disease
[2018-04-29] MEDS ORDERED: *HR* Midazolam HCl 2 MG/2 ML VIAL ONE (15:06)
[2018-04-29] MEDS ORDERED: Tirofiban 12.5 MG/250ML 12.5 MG/250 ML BAG ONE (15:26)
[2018-04-29] MEDS ORDERED: Tirofiban 12.5 MG/250ML 12.5 MG/250 ML BAG IVC SCH (16:00)
--- NOTE | 2018-04-29 16:12 | Invasive Diagnostic Lab Proc ---
Name: Juanito Berry Date of Study: 04/29/2018 Date: 1940 Ht: 70.9in Medical Record#: [id number] Age: 77 Wt: 216.05lb Gender: Male BSA: 2.18 Order #: [id number] BMI: 30.25 Physicians Procedure Physician: Shanna Goyal MD Referring MD: Referring MD: Staff Name Position Time In Yue Reyez RN Monitor 03:04 PM Fabiana Wilson RN Parking Garage Manager 03:04 PM Ayesha Vanegas RN Parking Garage Manager 03:04 PM Luci Enriquez RT (R) Scrub 03:04 PM Indications Indication Abnormal Test - Stress Procedures Performed Procedure L HRT ART/GRFT ANGIO PRQ CARD MANJIT STENT W/ANGIO 1 VSL Pre-Procedure Checklist Informed consent is complete signed and on chart. H&P is on chart. ID band is on and ID verified with patient. Patient NPO for procedure The procedure was described for the patient and questions were answered. Blood Pressure: 126/62 ECG is on chart. Rhythm: Sinus Bradycardia Plan of Care Patient will tolerate the procedure without complications. Adequate level of comfort will be maintained. Hemodynamics will remain stable Patient will recover from procedure without complications. Respiratory function will be maintained. Cardiac rhythm will remain stable. Patient temperature will be maintained. Patient and/or family have verbalized understanding of the procedure. Patient Education Chief Complaint/Reason for Test: Cardiac Cath Developmental Category: Geriatric (65+ years) Developmentally Appropriate for Age: Yes Learning Barriers: None Education Needs: Procedure Education Method: Verbal Information Taught: Cardiac Cath Educational Evaluation: Able to repeat information Intravenous Access Time IV Size Location DC'd Fluid/Drip Rate Units RN 02:50 PM 18g 1 11/16" Patent On Arrival Rt Antecubital Allergies STATIN Acetaminophen hydrocodone Hmg-Coa Reductase Inhibitor Eprnemd-Tfv-Ewj Reductase Inhibitor Oxycodone pravastatin Amoxicillin VICODIN Vital Signs Time BP (mmHg) HR (bpm) O2 Sat. RR (bpm) LOC 02:50 PM 126 / 62 57 92 % 17 5 = Fully awake and oriented or at pre-proc level 03:04 PM / % 5 = Fully awake and oriented or at pre-proc level 03:10 PM 160 / 74 66 97 % 03:15 PM 150 / 77 66 94 % 03:20 PM 137 / 63 71 91 % 03:25 PM 136 / 69 71 96 % 03:30 PM 129 / 76 71 97 % 03:35 PM 138 / 75 68 96 % 03:40 PM 144 / 74 67 97 % 03:45 PM 147 / 75 68 98 % 03:50 PM 145 / 72 70 98 % 03:55 PM 149 / 84 70 % Procedural Medications Time Medication Dose Units Method Given By 03:04 PM Oxygen 2 L/min nasal cannula Fabiana Wilson RN 03:10 PM Versed 1 mg Intravenous Ayesha Vanegas RN 03:10 PM Benadryl 25 mg Intravenous Ayesha Vanegas RN 03:14 PM Versed 1 mg Intravenous Fabiana Wilson RN 03:17 PM Lidocaine 2% 20 ml Subcutaneous Shanna Goyal MD 03:20 PM Oxygen 4 L/min nasal cannula Fabiana Wilson RN 03:27 PM Heparin 5000 units Intravenous Fabiana Wilson RN 03:29 PM Aggrastat Bolus: 50 ml Intravenous Fabiana Wilson RN 03:29 PM Aggrastat 12.5mg/250ml 18 ml/hr Intravenous Fabiana Wilson RN 03:58 PM Plavix 75 mg Orally Fabiana Wilson RN ASA Classification: CLASS II- Mild systemic disease (i.e. well-controlled diabetes, hypertension, asthma, cigarette smoking) Deric Score Preprocedure Postprocedure Activity 2- Moves 4 extremities sustained head lift Activity 2- Moves 4 extremities sustained head lift Circulation 2- SBP +/= 20 points of pre-anesthetic level Circulation 2- SBP +/= 20 points of pre-anesthetic level Consciousness 2- Awake and alert oriented x 3 Consciousness 2- Awake and alert oriented x 3 O2 Saturation 2- Able to maintain O2 satruation of 92% on room air O2 Saturation 2- Able to maintain O2 satruation of 92% on room air Respiratory 2- Able to deep breathe and cough well Respiratory 2- Able to deep breathe and cough well Total Score 10 Total Score 10 Contrast Agent: Isovue Diagnostic Contrast: 159 ml Total Contrast: 159 ml Fluoro Dose: 1573 mGy Activated Clotting Time Time Seconds to Clot 03:23 PM 146 03:35 PM 316 Procedure Log Time Note Enter By 03:00 PM Pt arrived to operations label clerk 2 at 15:00 dillon 03:04 PM Yue Reyez RN Position: Monitor Time in: 15:04 [email or web address] 03:04 PM Fabiana Wilson RN Position: Parking Garage Manager Time in: 15: [email or web address] 03:04 PM Ayesha Vanegas RN Position: Parking Garage Manager Time in: 15: [email or web address] 03:04 PM Luci Enriquez RT (R) Position: Scrub Time in: 15:04 [email or web address] 03:04 PM Patient charges- Angio tray pack, Navilyst 3mm J, Pulse Oximetry and ACIST tubing and transducer tsoummers 03:04 PM Hair removed from procedure site in procedure lab using clippers. Bilateral groin prepped with Chloraprep by Ayesha Vanegas RN, then patient was draped. Skin intact. [email or web address] 03:04 PM Physican paged/called 15:. [email or web address] 03:04 PM Physican responded and notified patient is ready 15: [email or web address] 03:04 PM Physician arrived 15: tsoummers 03:04 PM Meet and greet completed tsoummers 03:04 PM Sign in performed according to hospital policy. [email or web address] 03:04 PM Procedure start 15: [email or web address] 03:04 PM Time: 15:04 Oxygen on at 2 L/min per nasal cannula by Fabiana Wilson RN [email or web address] 03:04 PM Time: 15:04 Patient comfortable and pain free: Yes tsoummers 03:04 PM Time: 15:04LOC: 5 = Fully awake and oriented or at pre-proc level tsoummers 03:09 PM CathStat 03:09 PM Vitals capture started with the following parameters, Patient=Adult, Interval=5 min, Initial Skiacyrp=192 mmHg, Deflation Rate=5 mmHg, Cuff placed on Right Arm 03:10 PM Recorded ECG: HR=67 Condition=Condition 1 03:10 PM Time: 15:10 Versed 1 mg Intravenous Given by Ayesha Vanegas RN 03:10 PM HR=66 bpm, ROTZ=277/74 mmhg, SpO2=97.0 %, Comment=nsr occasional PVC's 03:10 PM Time: 15:10 Benadryl 25 mg Intravenous Given by Ayesha Vanegas RN 03:11 PM Recorded ECG: HR=63 Condition=Condition 1 03:12 PM Recorded ECG: HR=64 Condition=Condition 1 03:13 PM Time out performed according to hospital policy mm 03:14 PM Pressure channel 1 zero failed. 03:14 PM Pressure channel 1 zero failed. 03:14 PM Pressure channel 1 zeroed. 03:14 PM Time: 15:14 Versed 1 mg Intravenous Given by Fabiana Wilson RN margarito 03:15 PM HR=66 bpm, JOMI=812/77 mmhg, SpO2=94.0 %, Comment=nsr 03:17 PM Time: 15:17 20 ml Lidocaine 2% to right groin Subcutaneous Given by Shanna Goyal MD elva 03:17 PM Micro-Introducer Kit utilized for sheath placement 03:17 PM Access obtained by percutaneous puncture. 6Fr 10cm Terumo [place] sheath placed in right Femoral artery. [id number] 03:17 PM 5Fr FL 4 catheter inserted over the wire [facility] 03:18 PM 0.035 145cm Navilyst 3mmJ wire [id number] 03:19 PM wire removed 03:19 PM Recorded Pressure: Ao, HR=68, Condition=Condition 1 (Aorta) Ao 124/69/95 03:19 PM LCA angiography performed in multiple views. 03:20 PM ASA Class CLASS II- Mild systemic disease (i.e. well-controlled diabetes, hypertension, asthma, cigarette smoking) 03:20 PM HR=71 bpm, AYXW=303/63 mmhg, SpO2=91.0 %, Comment=nsr 03:20 PM Time: 15:20 Oxygen on at 4 L/min per nasal cannula by Fabiana Wilson RN elva 03:21 PM Catheter removed 03:21 PM 5Fr FR 4 catheter inserted over the wire [facility] 03:21 PM Recorded Pressure: Ao, HR=67, Condition=Condition 1 (Aorta) Ao 3/-4/0 03:21 PM Recorded Pressure: Ao, HR=71, Condition=Condition 1 (Aorta) Ao 0/-1/0 03:23 PM Recorded Pressure: Ao, HR=59, Condition=Condition 1 (Aorta) Ao 121/25/82 03:23 PM SVG to the 1st Diagonal angio performed in multiple views. 03:23 PM Recorded Pressure: Ao, HR=60, Condition=Condition 1 (Aorta) Ao 120/66/91 03:23 PM At 15:23 the ACT was 146 seconds. 03:24 PM SVG to the 1st OM performed in multiple views. 03:25 PM HR=71 bpm, SWLL=068/69 mmhg, SpO2=96.0 % 03:26 PM Left YAHIR to the LAD angio performed in multiple views. mm 03:26 PM Recorded Pressure: Ao, HR=71, Condition=Condition 1 (Aorta) Ao 123/72/96 03:27 PM Time: 15:27 Heparin 5000 units Intravenous Given by Fabiana Wilson RN melissaelva 03:27 PM Catheter removed ou 03:27 PM Inflation device was opened. mm 03:28 PM 6Fr XB3.5 [place] Bright-Tip guide catheter was used to cannulate the PCI vessel successfully. reused? No oumm 03:29 PM Time: 15:29 Aggrastat Bolus: 50 ml Intravenous Given by Fabiana Wilson RN Wade pump mm 03:29 PM Time: 15:29 Aggrastat 12.5mg/250ml 18 ml/hr Intravenous Given by Fabiana Wilson RN Wade pump oumm 03:30 PM HR=71 bpm, XOTW=234/76 mmhg, SpO2=97.0 % 03:31 PM ACT being drawn 03:33 PM .014 [employer] [place] 190cm guide wire across target lesion- successful. reused? No mm 03:33 PM 2.0 mm x 15 mm Emerge Monorail balloon across target lesion- successful. reused? No oumm 03:35 PM Balloon inflated @ 8 luna for 8 seconds tsoumm 03:35 PM Balloon inflated @ 8 luna for 8 seconds tsoumm 03:35 PM At 15:35 the ACT was 316 seconds. tsmm 03:35 PM HR=68 bpm, VBXB=754/75 mmhg, SpO2=96.0 %, Comment=nsr 03:37 PM Balloon catheter removed intact. oumm 03:38 PM 3.5mm x 20mm Synergy drug-eluting stent across target lesion- successful Lot #[id number] oummers 03:40 PM Stent deployed @ 9 luna for 20 seconds tsoummers 03:40 PM HR=67 bpm, CKPV=449/74 mmhg, SpO2=97.0 %, Comment=nsr 03:40 PM Stent balloon reinflated @ 13 luna for 12 seconds tsoummers 03:41 PM Stent balloon reinflated @ 14 luna for 14 seconds tsoummers 03:41 PM Stent delivery system removed intact. tsoummers 03:42 PM Lesion found in Proximal Circumflex. Pre Stenosis: 95 Pre JIMMY Flow: 3: Complete and Brisk Flow/Perfusion tsoummers 03:42 PM Circumflex, Obtuse Marginal, Left Posterior Descending, and Left Posterolateral Coronary Arteries with 95 % stenosis. If graft is supplying this area, 0 % stenosis tsoummers 03:42 PM 3.5 mm x 12mm NC Emerge balloon across target lesion- successful. reused? No tsoummers 03:43 PM Balloon inflated @ 18 luna for 10 seconds tsoummers 03:44 PM Balloon inflated @ 18 luna for 10 seconds tsoummers 03:44 PM Balloon inflated @ 18 luna for 6 seconds tsoummers 03:44 PM Balloon catheter removed intact. tsoummers 03:45 PM Recorded Pressure: Ao, HR=67, Condition=Condition 1 (Aorta) Ao 122/66/91 03:45 PM HR=68 bpm, ZNWS=296/75 mmhg, SpO2=98.0 %, Comment=nsr 03:45 PM Guide wire removed intact. tsoummers 03:46 PM Guide catheter removed intact. tsoummers 03:46 PM 5Fr Pigtail catheter inserted over the wire [facility] tsoummers 03:46 PM Catheter selectively placed in left ventricle tsoummers 03:46 PM NO INJECTIONS, PRESSURES OBTAINED tsoummers 03:48 PM Recorded Pressure: LV, HR=72, Condition=Condition 1 (Left Ventricle) LV 148/10/12 03:48 PM Recorded Pressure: LV, Ao, HR=69, Condition=Condition 1 (Left Ventricle) LV 147/4/11, (Aorta) Ao 144/72/103 03:49 PM Catheter removed tsoummers 03:50 PM 5Fr FR 4 catheter inserted over the wire [facility] tsoummers 03:50 PM RCA angiography performed in multiple views. tsoummers 03:50 PM HR=70 bpm, ZZXA=208/72 mmhg, SpO2=98.0 %, Comment=nsr 03:50 PM Coronary Dominance: Left tsoumm 03:51 PM Catheter removed oumm 03:51 PM Recorded Pressure: Ao, HR=71, Condition=Condition 1 (Aorta) Ao 132/74/101 03:52 PM Procedure completed at 15:52 tsoummers 03:52 PM Did you address JIMMY flow and Dominance? Yes tsoumm 03:52 PM Sign out completed: Radiation Dose 1573.42 mGy Fluoro Time: 10.9 Isovue 370 - 200ml contrast 159 ml given by Shanna Goyal MD. Complications: NoneCardiac Rehab Consult needed: YesConfirmed administered medications: Yes mm 03:53 PM Arterial sheath pulled, Angio-seal closure device used and was Successful [id number] S/N. tsoumm 03:55 PM HR=70 bpm, FINU=662/84 mmhg, Comment=nsr 03:55 PM Estimated Blood Loss: less than 20cc tsoummers 03:56 PM Post ECG Sinus RHTYHM tsoummers 03:56 PM Post Blood Pressure 149/84 tsoummers 03:56 PM 15:56 Post Pulses Bilateral DP & PT 2+ tsoummers 03:56 PM Information taught Cardiac Cath and Angioseal tsoummers 03:56 PM Education needs Plan of Care, Procedure, and Responsibilities of Patient in Care tsoumm 03:57 PM Information taught PCI tsoumm 03:57 PM Education evaluation Able to repeat information tsoummers 03:57 PM Site status No bleeding/hematoma - Rt Groin as reported by Luci Enriquez RT (R) at 15:57 tsoummers 03:57 PM Opsite applied tsoummers 03:58 PM Time: 15:58 Plavix 75 mg Orally Given by Fabiana Wilson RN oummers 03:58 PM Plavix, Effient or Brilinta given Yes tsoummers 03:58 PM Delay to floor No tsoummers 03:58 PM Family placed in consult room. tsoummers 03:58 PM Complications: None tsoummers 03:58 PM Fluoro Time: 10.9 tsoummers 03:58 PM Isovue 370 - 200ml contrast [address] Goyal. tsoummers 03:58 PM Radiation Dose 1573.42 mGy tsoummers 04:01 PM Report given to Reji MARIN Pt taken to 3B Room #46. 16:01 tsoummers 04:01 PM Patient out of room: 16:01 tsoummers 04:01 PM Lesion found in Mid RCA. Pre Stenosis: 100 Pre JIMMY Flow: 0: No Flow/No perfusion tsoummers 04:01 PM Lesion found in Mid LAD. Pre Stenosis: 100 Pre JIMMY Flow: 0: No Flow/No perfusion tsoummers 04:01 PM Lesion found in 1st Diagonal. Pre Stenosis: 100 Pre JIMMY Flow: 0: No Flow/No perfusion tsoummers 04:02 PM Lesion found in 1st Marginal. Pre Stenosis: 80 Pre JIMMY Flow: tsoummers 04:02 PM Mid/Distal Left Anterior Descending Coronary Artery and diagonal branches with 100% stenosis. If graft is supplying this area, 0 % stenosis tsoummers 04:02 PM Right Coronary, Right Posterior Descending Arteries with Right Posterolateral and Acute Marginal branches with 100 % stenosis. If graft is supplying this area, 0 % stenosis tsoummers Complications Complication None Hemodynamics Pressures Site Systolic/A Wave Diastolic/V Wave Mean AO 124 69 95 AO 3 -4 0 AO 0 -1 0 AO 121 25 82 AO 120 66 91 AO 123 72 96 AO 122 66 91 LV 148 10 12 LV 147 4 11 AO 144 72 103 AO 132 74 101 Post Procedure Information Blood Pressure: 149/84 mmHg Rhythm: Sinus RHTYHM Post procedural instructions were given Closure Device Time Device Success/Fail 04/29/2018 3:53:00 PM Angio-Seal VIP Successful Site Checks Time Location Status Staff Sheath In? Note 03:57 PM Rt Groin No bleeding/hematoma Luci Enriquez RT (R) Pulses Time Site Pre-Procedure Post-Procedure Note 04/29/2018 2:50:00 PM Bilateral DP & PT 3+ 04/29/2018 2:50:00 PM Bilateral radial 3+ 3:56:00 PM Bilateral DP & PT 2+ Updated by Yue Reyez RN on 04/29/2018 4:07:02 PM electronically signed on 04/29/2018 4:07:23 PM with status of Final
[2018-04-30 05:21] LABS: Hematocrit 52.1 % (37.5-50.1); Hemoglobin 17.1 g/dL (12.9-16.9)
[2018-04-30 05:42] LABS: BUN/Creatinine Ratio 19 (6-26); Blood Urea Nitrogen 22 mg/dL (8-23); eGFR For African Americans > 60 (> 60); eGFR For Non-African Americans > 60 (> 60)
[2018-04-30 07:43] VITALS: BP 125/67
[2018-04-30] MEDS: amLODIPine 5 MG TABLET PO SCH (08:24)
[2018-04-30] MEDS: Cyanocobalamin (B-12) 1,000 MCG TABLET PO SCH (08:24)
[2018-04-30] MEDS: Cholecalciferol (D-3) 1,000 UNIT TABLET PO SCH (08:24)
[2018-04-30] MEDS: Magnesium Oxide 400 MG TABLET PO SCH (08:24)
[2018-04-30] MEDS: Losartan/HCTZ 50-12.5 TABLET PO SCH (08:24)
[2018-04-30] MEDS: Aspirin Enteric Coated 81 MG Tablet PO SCH (08:24)
--- NOTE | 2018-04-30 08:28 | Discharge Summary ---
<Warren Altman - Last Filed: 04/30/18 08:26> - NOTES TO OUTPATIENT PROVIDER Notes to Outpatient Provider: Had 1 cardiac stent placed, decreased his beta pj due to bradycardia Orders not resulted at time of discharge: Pending orders 04/27/18 16:50 NM fernando perf SPECT multi [NM] Routine Date of Encounter: 04/30/18 Time of Encounter: 08:26 - Discharge Diagnosis (1) Unstable angina Priority: Primary Status: Resolved (2) CAD (coronary artery disease) Priority: Primary Status: Chronic Qualifiers: Coronary Disease-Associated Artery/Lesion type: bypass graft [place] vs. transplanted heart: [place] heart Associated angina: with stable angina Qualified Code(s): I25.708 - Atherosclerosis of coronary artery bypass graft(s) , unspecified, with other forms of angina pectoris (3) HTN (hypertension) Priority: Secondary Status: Chronic Qualifiers: Hypertension type: essential hypertension Qualified Code(s): I10 - Essential (primary) hypertension (4) HLD (hyperlipidemia) Priority: Secondary Status: Chronic Qualifiers: Hyperlipidemia type: unspecified Qualified Code(s): E78.5 - Hyperlipidemia , unspecified (5) Bradycardia Priority: Secondary Status: Chronic Hospital course: Mr. Berry is a 77 year old male with history of coronary disease, hypertension, hyperlipidemia presented with chest pain. Patient initially had chest pressure that was present while he was up walking around and progressed to chest pain at rest that would wake him up from sleep. Given the symptoms patient was admitted and underwent cardiac stress test which was positive for ischemia. Cardiology was then consulted and patient underwent left heart catheterization which revealed 95% stenosis in the proximal circumflex artery. He underwent PCI with stent placement. Patient tolerated this procedure well. He was stable overnight and will be discharged left day after his left heart cath. Patient will be discharged home on aspirin, Plavix, weekly statin (due to statin allergy). He was noted to have a heart rate in the high 50s and low 60s during his admission so we decreased his beta pj dose to Toprol-XL 25 mg daily. Patient will be discharged home in stable condition. Discharge discussed with: patient, education consultant - Time Spent with Patient Total time spent providing and/or coordinating discharge services: Greater than 30 minutes - Discharge Medications Home Medications: Amlodipine Besylate 10 mg PO DAILY 04/27/18 [History] Aspirin [Lo-Dose Aspirin EC] 81 mg PO DAILY 04/27/18 [History] Atorvastatin [Lipitor] 10 mg PO QWEEK 04/27/18 [History] Cholecalciferol (Vitamin D3) [Vitamin D3] 2,000 unit PO DAILY 04/27/18 [History] Cyanocobalamin (B-12) [Vitamin B12] 1,000 mcg PO DAILY 04/27/18 [History] Losartan/Hydrochlorothiazide [Losartan-Hctz 100-25 mg Tab] 1 tab PO DAILY [History] Magnesium Oxide [Magnesium] 250 mg PO DAILY 04/27/18 [History] [place]-3/Dha/Epa/Fish Oil [Fish Oil 1,000 mg Softgel] 1 cap PO BID 04/27/18 [ History] Potassium Chloride [Klor-Con 10] 10 meq PO BID 04/27/18 [History] Pramipexole Di-HCl [Pramipexole Dihydrochloride] 0.25 mg PO HS 04/27/18 [History ] Ubidecarenone [Co Q-10] 200 mg PO DAILY 04/27/18 [History] Clopidogrel [Plavix] 75 mg PO DAILY #30 tablet 04/30/18 [Rx] Metoprolol XL (24 HR) Succ [Toprol Xl] 25 mg PO DAILY #30 tab.er.24h 04/30/18 [ Rx] Nitroglycerin 0.4 mg SL Q5MIN PRN #15 tab.subl 04/30/18 [Rx] Allergies/Adverse Reactions: 3 Allergy/AdvReac Type Severity Reaction Status Date / Time Amoxicillin AdvReac Diarrhea Verified 04/27/18 11:15 fenofibrate AdvReac Muscle Pain Verified 04/27/18 11:15 hydrocodone AdvReac See Verified 04/27/18 11:15 Comments Oxycodone AdvReac See Verified 04/27/18 11:15 Comments pravastatin AdvReac Muscle Pain Verified 04/27/18 11:15 [id number]-Kzm-Hzd Reductase AdvReac See Verified 04/27/18 11:15 Inhibitor Comments [HMG-Coa Reductase Inhibitors] Date of admission: 04/27/18 12:43 Primary care physician: Kimberly Kirkpatrick-[facility] Consults: 04/28/18 12:06 Consult to Cardiology [CONS] Routine Comment: Consulting Provider: Cardiology Kelly Reason for Consult: CP/abnormal stress Call Completed: Yes 04/29/18 16:01 Consult to Cardiac Rehabilitation-Phase1 [CONS] Routine Comment: Reason for Consult: post op PCI Call Completed: Yes Discharging clinician: Warren Altman Anticipated date of discharge: 04/30/18 - Constitutional Vitals: Temp Pulse Resp BP Pulse Ox 97.9 F 53 17 125/67 94 04/30/18 07:42 04/30/18 07:42 04/30/18 07:42 04/30/18 07:42 04/30/18 07:42 General appearance: Present: A&O X 3, no acute distress, answers questions appropriately - Respiratory Respiratory exam: Present: CTAB. Absent: rales, rhonchi, wheezes - Cardiovascular Cardiovascular exam: Present: bradycardia. Absent: gallop, irregular rhythm, rubs, systolic murmur - GI/Abdominal GI/Abdominal exam: Present: normal bowel sounds, soft. Absent: distended, tenderness - Extremities Exam Extremities exam: Present: warm. Absent: pedal edema, tenderness - Neurological Exam Neurological exam: Present: alert, CN II-XII intact, oriented X3, no focal deficits - Patient Status Disposition: Home, Self-Care Condition: Good Functional capacity at discharge: independent ambulation Overall status at discharge: patient is progressing back to baseline - Discharge Instructions Instructions: Metoprolol (By mouth), Nitroglycerin (By mouth), Clopidogrel (By mouth), Chronic Hypertension (DC) Follow Up With: Kimberly Kingsley MD [Primary Care Provider] - 05/07/18 11:45 am (1 week) Boni Iraheta DO [Partnered Physician] - (2-4 weeks) Additional Instructions: RISK FACTORS: STOP SMOKING: If you smoke, STOP. Smoking or tobacco use significantly increases your risk of heart disease because nicotine causes the arteries to narrow or constrict. It also causes fats to stick to the artery. Your chances of having a heart attack are greatly increased if you continue to smoke. For more information, call the education line for smoking cessation 4-483-DQLZMRX EAT A LOW FAT/CHOLESTEROL/SODIUM DIET: This diet may help reduce your chances of having a heart attack. LIFTING: Avoid lifting anything more than 10 pounds for 5-7 days Prior to straining, laughing, sneezing and/or coughing, apply manual pressure directly over insertion site. ACTIVITY: You may walk or climb stairs as tolerated You can resume sexual activity as tolerated In general, you are encouraged to engage in a minimum of 30 minutes or more of moderate intensity physical activity, such as brisk walking, daily or at least 3 -4 times weekly BATHING Do not submerge the site into water (bath tub, hot tub, swimming pool) for 1 week. This can be a source for infection into the blood stream. You may shower after 24 hours SITE CARE: After 24 hours, you may remove the dressing and leave the site open to air. Keep the site clean and dry. Clean gently and pat dry. You can expect bruising and tenderness that gradually resolve within a week or two. Return to work as instructed per your physician Resume driving as instructed per physician Keep all scheduled follow up appointments Resume medications as instructed IMPORTANT: If prescribed a Platelet Aggregation Inhibitor such as, Plavix, Brilinta or Effient: Duration of therapy is minimum one year These medications are often used in combination with Aspirin in prevention of future heart attacks Never discontinue unless consult with your Correctional Supervising Cook STROKE (CVA) Risk factors for a stroke are: Age, cigarette smoking, diabetes, excessive alcohol consumption, family history, high blood pressure, overweight, physical inactivity, prior stroke, heart attack, diagnosis of carotid artery stenosis or other artery disease. Warning signs: Sudden numbness or weakness of the face, arm or leg; especially on one side of the body, sudden confusion, trouble speaking or understanding, sudden trouble seeing in one or both eyes, sudden trouble walking, dizziness, loss of balance or coordination, sudden severe headache with no cause. Call 911 or go to the Emergency Room. CONGESTIVE HEART FAILURE: If you have been diagnosed with Congestive Heart Failure (CHF) and your symptoms return, make an appointment with your physician Weigh yourself daily. Notify your physician if you have a weight gain of two or more pounds in one day or five or more pounds in one week. If you experience any difficulty breathing, please call 911 BLEEDING: Although the risk of bleeding is minimal, it can happen. If you have any bleeding from the site, apply firm pressure above the puncture site for 10-15 minutes. If the bleeding does not stop, continue manual pressure and call 911 Contact your physician if: You develop a fever greater than 101 degrees Fahrenheit Your site becomes reddened or has any drainage You have an increase in pain or burning at the site or if a large knot forms at the site. If you experience chest pain, shortness of breath, dizziness, or extreme tiredness, stop the activity and rest. Please notify your physicians office if you experience any of these symptoms and they are not relieved by rest please call 911!Please follow-up with your primary care physician within one week. Please follow-up with cardiology in 2-4 weeks. Please resume your home medications. Please take aspirin and Plavix daily without missing any days. Please decrease her Toprol-XL dose to 25 mg daily. Please use nitroglycerin under the tongue as needed for chest pain, if this does not relieve her chest pain after 3 doses please seek medical attention. Please return for any new or worsening symptoms - Diet and Activity Activity: increase activity as tolerated Diet: low fat, low cholesterol, low salt diet <Drea Martinez - Last Filed: 04/30/18 18:25> Date of Encounter: 04/30/18 - Discharge Diagnosis (1) Unstable angina Status: Resolved (2) CAD (coronary artery disease) Status: Chronic Qualifiers: Coronary Disease-Associated Artery/Lesion type: bypass graft [place] vs. transplanted heart: [place] heart Associated angina: with stable angina Qualified Code(s): I25.708 - Atherosclerosis of coronary artery bypass graft(s) , unspecified, with other forms of angina pectoris (3) HTN (hypertension) Status: Chronic Qualifiers: Hypertension type: essential hypertension Qualified Code(s): I10 - Essential (primary) hypertension (4) HLD (hyperlipidemia) Status: Chronic Qualifiers: Hyperlipidemia type: unspecified Qualified Code(s): E78.5 - Hyperlipidemia , unspecified (5) Bradycardia Status: Chronic Hospital course: Mr. Berry is a 77 year old male - Time Spent with Patient Total time spent providing and/or coordinating discharge services: Date of admission: 04/30/18 08:55 Primary care physician: Kimberyl Kirkpatrick-[facility] - Constitutional Vitals: Temp Pulse Resp BP Pulse Ox 97.9 F 53 17 125/67 94 04/30/18 07:42 04/30/18 07:42 04/30/18 07:42 04/30/18 07:42 04/30/18 08:52 - Attending Attestation I examined this patient and my medical decision-making was reviewed with the Resident Physician . I agree with the documented findings, disposition and treatment plan as described except to the extent set forth below. Mr. Berry is a 77 year old male with known hypertension, hyperlipidemia, and CAD with s/p PCI, history of CABG roughly 15 years ago, arrives to the emergency department being sent from primary care physician office for EKG changes and angina chest pain. He did mention from last one week he has been having intermittent CP, located left chest and sub sternal region, radiating to his Left arm. He did go for [facility] y/d showed triple vessel disease, had PCI x 1, patent grafts noticed. Now he denied any CP. Gen: A,A,O x 3 a/p 1. Acute unstable angina 2. Abnormal stress test 3. CAD s/p stent x 1 4. s/p CABG DAP, Low dose BB, ACEI and Statin
--- NOTE | 2018-04-30 08:38 | Cardiology Progress Note ---
Date of Encounter: 04/30/18 Time of Encounter: 08:36 Assessment and Plan (1) CAD (coronary artery disease) Current Visit: Yes Status: Chronic S/P LHC yesterday, severe 3 vessel CAD. Successful PTCA/MANJIT pLCx. S/P CABG 3/3 patent bypass grafts. DAPT (ASA and Plavix) uninterrupted x 1 year. Pt verbalizes understanding. Continue Statin (weekly due to hx of intolerance). Added back low dose BB since pt has been mildly bradycardic--Toprol XL 25mg daily. Pt denies chest pain or dyspnea, but reports a "strange sensation" in his back and chest, but denies it as being pain. Repeat EKG unchanged from baseline. 12 hr tele AVG HR 63, SR with PACs. Was on Toprol XL 50mg daily at home. Has been on hold during inpt due to bradycardia. Will add back at lower dose of 25mg daily. Per pt, HR always 50s-60s at home. Right femoral access site healing well. No bleeding or hematoma. Mild ecchymosis noted. Restrictions discussed. Cardiology signing off. Reconsult PRN. Will coordinate outpt follow-up in 3-[address] Iraheta. Qualifiers: Coronary Disease-Associated Artery/Lesion type: bypass graft [place] vs. transplanted heart: [place] heart Associated angina: with stable angina Qualified Code(s): I25.708 - Atherosclerosis of coronary artery bypass graft(s) , unspecified, with other forms of angina pectoris (2) Abnormal stress test Current Visit: Yes Status: Acute Pt had abnormal stress test with mild ischemia in basal lateral wall. LHC with MANJIT to pLCx. Plan as above. Discussion w patient/family: The assessment and plan as outlined above was discussed with the patient and/or family members who expressed understanding and agreement. All questions were answered. Thank you for involving us in the care of your patient. Please call with any questions. I will discuss all the above with Dr. Mahan and make changes as necessary. Subjective Principal diagnosis: CAD, abnormal stress, S/P PCI Interval history: Underwent LHC yesterday for abnormal stress test and chest pain. LHC showed severe 3 vessel CAD. Successful PTCA/MANJIT to pLCx. S/P CABG 3/3 patent grafts. Pt denies chest pain or dyspnea, but reports feeling a strange sensation in his chest and back s/p LHC. Again, denies that it is pain. Objective Vital Signs, Last 4 Hours Temp Pulse Resp BP Pulse Ox 04/30/18 07:42 97.9 F 53 17 125/67 94 Vital Signs Temp Pulse Resp BP Pulse Ox 04/30/18 07:42 97.9 F 53 17 125/67 94 04/30/18 03:52 97.7 F 62 20 148/68 93 04/29/18 23:08 97.5 F L 55 20 126/64 96 04/29/18 20:00 97.8 F 59 17 130/64 93 04/29/18 18:48 58 143/75 93 04/29/18 18:00 55 134/69 93 04/29/18 17:31 59 158/75 96 04/29/18 17:02 57 144/70 97 04/29/18 16:47 70 161/85 96 04/29/18 16:38 70 166/87 96 04/29/18 16:17 98.8 F 61 144/74 91 04/29/18 11:39 97.8 F 57 17 126/62 92 Intake and Output 04/29/18 04/30/18 04/30/18 23:59 07:59 15:59 Intake Total 71 / 71 Output Total 800 / 800 Balance -729 / -729 Intake: IV Fluids / Aggrastat 12.5 MG/250 ML 12.5 71 / 71 mg In 250 ml @ 0.15 MCG/KG/MIN 17.712 mls/hr IVC .Q14H7M [facility] Rx#:[id number] Output: Urine 800 / 800 Other: Weight 97.7 kg Patient Weight 04/30/18 23:59 Weight 97.7 kg General: Conversant, No Apparent Distress HEENT: Atraumatic, Normocephaly, Mucus Membranes Moist Neck: No JVD, Normal carotid pulses Cardiac: Reg Rate and Rhythm, Normal S1 and S2, No Murmur Lungs: Normal Breath Sounds, No Wheeze, Rales, Rhonchi Neuro: Alert and responsive, No focal deficits noted Abdomen: Soft, Non-Tender Skin: Other (right femoral access site healing well. No bleeding or hematoma. Mild ecchymosis noted.) Musculoskeletal: No Chest Wall Tenderness Extremities: No Clubbing, No Cyanosis, No Edema, Normal Pulses Results 04/30/18 04:29 04/30/18 04:29 Lab Results 04/29/18 04/29/18 04/29/18 08:46 08:46 11:02 WBC 7.5 Hgb 17.3 H Hct 52.2 H Plt Count 228 INR 1.1 APTT 34.3 Sodium 138 Potassium 3.9 Chloride 100 Carbon Dioxide 33 H BUN 21 Creatinine 1.02 Glucose 111 H Calcium 9.4 04/29/18 04/30/18 04/30/18 14:50 04:29 04:29 WBC Hgb 17.1 H Hct 52.1 H Plt Count 218 INR APTT 67.9 H D Sodium Potassium Chloride Carbon Dioxide BUN 22 Creatinine 1.15 Glucose Calcium Short CBC 04/30/18 04/29/18 Range/Units 04:29 08:46 WBC 7.5 (4.3-11.1) K/mcL Hgb 17.1 H 17.3 H (12.9-16.9) g/dL Hct 52.1 H 52.2 H (37.5-50.1) % Plt Count 218 228 (140-400) K/mcL BMP 04/30/18 04/29/18 Range/Units 04:29 11:02 Sodium 138 (136-145) mEq/L Potassium 3.9 (3.5-5.1) mEq/L Chloride 100 (98-107) mEq/L Carbon Dioxide 33 H (23-29) mEq/L BUN 22 21 (8-23) mg/dL Creatinine 1.15 1.02 (0.70-1.30) mg/dL Glucose 111 H (70-105) mg/dL Calcium 9.4 (8.6-10.3) mg/dL Active Medications Acetaminophen (Tylenol) 650 mg PO Q6HR PRN PRN Reason: Mild Pain/Fever Stop: 10/27/18 12:52 Amlodipine Besylate (Norvasc) 10 mg PO DAILY [facility] Stop: 10/28/18 09:01 Last Admin: 04/30/18 08:24 Dose: 10 mg Aspirin (Aspirin Ec) 81 mg PO DAILY [facility] Stop: 10/28/18 09:01 Last Admin: 04/30/18 08:24 Dose: 81 mg Atorvastatin Calcium (Lipitor) 10 mg PO QWEEK [facility] Stop: 10/29/18 09:01 Last Admin: 04/29/18 08:54 Dose: 10 mg Clopidogrel Bisulfate (Plavix) 75 mg PO DAILY [facility] Stop: 10/29/18 09:01 Last Admin: 04/30/18 08:24 Dose: 75 mg Cyanocobalamin (Vitamin B12) 1,000 mcg PO DAILY [facility] Stop: 10/28/18 09:01 Last Admin: 04/30/18 08:24 Dose: 1,000 mcg Docusate Sodium (Colace) 100 mg PO BID PRN PRN Reason: Constipation Stop: 10/27/18 21:01 HCTZ/Losartan Potassium (Hyzaar 50/12.5) 2 each PO DAILY [facility] Stop: 10/28/18 09:01 Last Admin: 04/30/18 08:24 Dose: 2 each Magnesium Oxide (Mag-Ox) 400 mg PO DAILY [facility] Stop: 10/28/18 09:01 Last Admin: 04/30/18 08:24 Dose: 400 mg Metoprolol Succinate (Toprol Xl) 25 mg PO DAILY [facility] Stop: 10/30/18 09:01 Last Admin: 04/30/18 08:24 Dose: 25 mg Naloxone HCl (Narcan) 0.4 mg IVP Q2MIN PRN PRN Reason: SEE COMMENTS Stop: 10/27/18 12:52 Nitroglycerin (Nitroglycerin) 0.4 mg SL Q5MIN PRN PRN Reason: Chest Pain Stop: 10/27/18 12:56 Ondansetron HCl (Zofran) 4 mg IVP Q8HR PRN PRN Reason: Nausea And Vomiting Stop: 10/27/18 12:52 Pharmacy Profile Note (Patient Taking Own Medication) 0 each PO BID [facility] Stop: 10/27/18 21:01 Last Admin: 04/29/18 19:57 Dose: Not Given Pharmacy Profile Note (Patient Taking Own Medication) 0 each PO DAILY [facility] Stop: 10/28/18 09:01 Last Admin: 04/29/18 08:53 Dose: Not Given Potassium Chloride (Potassium Chloride) 10 meq PO BID [facility] Stop: 10/27/18 21:01 Last Admin: 04/30/18 08:24 Dose: 10 meq Pramipexole Dihydrochloride (Mirapex) 0.25 mg PO HS [facility] Stop: 10/27/18 21:01 Last Admin: 04/29/18 19:57 Dose: 0.25 mg Vitamin D (Vitamin D) 1,000 unit PO DAILY [facility] Stop: 10/28/18 09:01 Last Admin: 04/30/18 08:24 Dose: 1,000 unit - Imaging and Cardiology Stress Test: report reviewed Cardiac cath: report reviewed - EKG Interpretation EKG results cardiology: other (12 hr tele AVG HR 62, SR with PACs. No significant pauses or arrhythmias noted.) Consult Discharge Plan - Plan Additional Instructions: RISK FACTORS: STOP SMOKING: If you smoke, STOP. Smoking or tobacco use significantly increases your risk of heart disease because nicotine causes the arteries to narrow or constrict. It also causes fats to stick to the artery. Your chances of having a heart attack are greatly increased if you continue to smoke. For more information, call the education line for smoking cessation 4-297-ADMLQIA EAT A LOW FAT/CHOLESTEROL/SODIUM DIET: This diet may help reduce your chances of having a heart attack. LIFTING: Avoid lifting anything more than 10 pounds for 5-7 days Prior to straining, laughing, sneezing and/or coughing, apply manual pressure directly over insertion site. ACTIVITY: You may walk or climb stairs as tolerated You can resume sexual activity as tolerated In general, you are encouraged to engage in a minimum of 30 minutes or more of moderate intensity physical activity, such as brisk walking, daily or at least 3 -4 times weekly BATHING Do not submerge the site into water (bath tub, hot tub, swimming pool) for 1 week. This can be a source for infection into the blood stream. You may shower after 24 hours SITE CARE: After 24 hours, you may remove the dressing and leave the site open to air. Keep the site clean and dry. Clean gently and pat dry. You can expect bruising and tenderness that gradually resolve within a week or two. Return to work as instructed per your physician Resume driving as instructed per physician Keep all scheduled follow up appointments Resume medications as instructed IMPORTANT: If prescribed a Platelet Aggregation Inhibitor such as, Plavix, Brilinta or Effient: Duration of therapy is minimum one year These medications are often used in combination with Aspirin in prevention of future heart attacks Never discontinue unless consult with your Vaccine Manager STROKE (CVA) Risk factors for a stroke are: Age, cigarette smoking, diabetes, excessive alcohol consumption, family history, high blood pressure, overweight, physical inactivity, prior stroke, heart attack, diagnosis of carotid artery stenosis or other artery disease. Warning signs: Sudden numbness or weakness of the face, arm or leg; especially on one side of the body, sudden confusion, trouble speaking or understanding, sudden trouble seeing in one or both eyes, sudden trouble walking, dizziness, loss of balance or coordination, sudden severe headache with no cause. Call 911 or go to the Emergency Room. CONGESTIVE HEART FAILURE: If you have been diagnosed with Congestive Heart Failure (CHF) and your symptoms return, make an appointment with your physician Weigh yourself daily. Notify your physician if you have a weight gain of two or more pounds in one day or five or more pounds in one week. If you experience any difficulty breathing, please call 911 BLEEDING: Although the risk of bleeding is minimal, it can happen. If you have any bleeding from the site, apply firm pressure above the puncture site for 10-15 minutes. If the bleeding does not stop, continue manual pressure and call 911 Contact your physician if: You develop a fever greater than 101 degrees Fahrenheit Your site becomes reddened or has any drainage You have an increase in pain or burning at the site or if a large knot forms at the site. If you experience chest pain, shortness of breath, dizziness, or extreme tiredness, stop the activity and rest. Please notify your physicians office if you experience any of these symptoms and they are not relieved by rest please call 911!Please follow-up with your primary care physician within one week. Please follow-up with cardiology in 2-4 weeks. Please resume your home medications. Please take aspirin and Plavix daily without missing any days. Please decrease her Toprol-XL dose to 25 mg daily. Please use nitroglycerin under the tongue as needed for chest pain, if this does not relieve her chest pain after 3 doses please seek medical attention. Please return for any new or worsening symptoms Referrals: Kimberly Kingsley MD [Primary Care Provider] - (1 week) Boni Iraheta DO [Partnered Physician] - (2-4 weeks) Prescriptions: Nitroglycerin 0.4 mg SL Q5MIN PRN #15 tab.subl PRN Reason: Chest Pain Clopidogrel [Plavix] 75 mg PO DAILY #30 tablet Metoprolol XL (24 HR) Succ [Toprol Xl] 25 mg PO DAILY #30 tab.er.24h
[2018-04-30] MEDS: (Omega-3/Dha/Epa/Fish Oil [Fish Oil 1,000 Mg Softgel]) PO SCH (08:52)
[2018-04-30] MEDS: (Ubidecarenone [Co Q-10] 200 MG) PO SCH (08:53)
[2018-04-30] MEDS ORDERED: Metoprolol XL (24 HR) Succ 25 MG TAB.ER.24H PO SCH (09:00)
--- NOTE | 2018-04-30 09:09 | Electrocardiograph Report ---
[address] [address] Test Date: 2018-04-27 Pat Name: Juanito Berry Department: 103 Room: 3B46 Gender: M Internal Salesperson: : 1940 Requested By: Warren Baum Order Number: [id number] Reading MD: Dion Christensen Measurements Intervals [place] Rate: 57 P: 23 CO: 189 QRS: 5 QRSD: 105 T: 86 QT: 417 QTc: 411 Interpretive Statements SINUS BRADYCARDIA Poor R wave progression Electronically Signed On 04-30-2018 9:07:53 EDT by Dion Christensen
--- NOTE | 2018-04-30 10:05 | Electrocardiograph Report ---
[place] [address] Test Date: 2018-04-30 Pat Name: Juanito Berry Department: 113 Room: 3B46 Gender: M Histotechnologist: GIOVANY : 1940 Requested By: Shanna Goyal Order Number: [id number] Reading MD: Boni Iraheta Measurements Intervals [place] Rate: 65 P: 10 [place]: 199 QRS: -9 QRSD: 99 T: 85 QT: 401 QTc: 413 Interpretive Statements SINUS RHYTHM WITH OCCASIONAL SUPRAVENTRICULAR PREMATURE COMPLEXES NONSPECIFIC ST & T-WAVE ABNORMALITY Electronically Signed On 04-30-2018 10:03:31 EDT by Boni Iraheta
--- NOTE | 2018-04-30 10:06 | Electrocardiograph Report ---
[address] [address] Test Date: 2018-04-29 Pat Name: Juanito Berry Department: 113 Room: 3B46 Gender: M Visual Lead: : 1940 Requested By: Shanna Goyal Order Number: [id number] Reading MD: Boni Iraheta Measurements Intervals [place] Rate: 59 P: 20 W[place]: 190 QRS: -3 QRSD: 106 T: 84 QT: 423 QTc: 421 Interpretive Statements SINUS BRADYCARDIA NONSPECIFIC ST & T-WAVE ABNORMALITY Electronically Signed On 04-30-2018 10:04:41 EDT by Boni Iraheta
--- NOTE | 2018-04-30 10:12 | Electrocardiograph Report ---
[address] [address] Test Date: 2018-04-29 Pat Name: Juanito Berry Department: 113 Room: 3B46 Gender: M Rn Hemo Dialysis: [id number] : 1940 Requested By: Gopi Santa Order Number: [id number] Reading MD: Dion Christensen Measurements Intervals [place] Rate: 57 P: 23 MT: 196 QRS: 7 QRSD: 102 T: 95 QT: 419 QTc: 414 Interpretive Statements SINUS BRADYCARDIA Electronically Signed On 04-30-2018 10:10:38 EDT by Dion Christensen
== END 2018-04-30 10:25 | disposition home or self-care (01) | DRG 247 ==
LOC: 3BNU 10:22 → EMEROO 10:22 → 3BNU 13:04 → UNDODISOB 04-30 10:25
PROVIDERS: ADMIT Family Medicine; ATTEND Family Medicine